=== PATIENT | female | born 1995 | race Two or more races ===

== ENCOUNTER 2019-09-08 20:30 | Inpatient (IN) | payer OTHER ==
[~2019-09-08] VITALS: Ht 162.6 cm; Wt 93.0 kg
[2019-09-08 20:50] VITALS: BP 107/65
[2019-09-08] MEDS ORDERED: LACTATED RINGERS 1,000 ML IV SCH (21:24)
[2019-09-08] MEDS ORDERED: LACTATED RINGERS 500 ML IV ONE (21:25)
[2019-09-08 21:56] LABS: APPEARANCE,URINE CLEAR (CLEAR); BILIRUBIN,URINE NEGATIVE (NEGATIVE); BLOOD, URINE NEGATIVE (NEGATIVE); COLOR,URINE YELLOW (YELLOW); LEUKOCYTE ESTERASE ,URINE NEGATIVE (NEGATIVE); NITRITE, URINE NEGATIVE (NEGATIVE); UGLUCOSE NEGATIVE (NEGATIVE)
[2019-09-08 21:57] LABS: BASOPHILS % (AUTO) 0.7 % (0.0-2.0); EOSINOPHILS # (AUTO) 0.1 K/uL (0-0.4); EOSINOPHILS % (AUTO) 0.9 % (0.0-4.0); HEMATOCRIT 34.2 % (36-48); LYMPHOCYTES # (AUTO) 1.9 K/uL (2.5-16.5); LYMPHOCYTES % (AUTO) 33.8 % (20.5-51.1); MEAN CORPUSCULAR HEMOGLOBIN 27 pg (27-31); MEAN CORPUSCULAR HGB CONC 32 g/dL (33-37); MONOCYTES # (AUTO) 0.4 K/uL (0.8-1.0); MONOCYTES % (AUTO) 7.2 % (1.7-9.3); NEUTROPHILS # (AUTO) 3.2 K/uL (1.8-7.7); NEUTROPHILS % (AUTO) 57.4 % (42.2-75.2); PLATELET COUNT (AUTO) 248 K/uL (140-450); RED BLOOD CELL COUNT(AUTO) 4.07 MIL/uL (4.20-5.40); RED CELL DISTRIBUTION WIDTH 17.7 % (11.6-13.7); WHITE BLOOD COUNT (AUTO) 5.6 K/uL (4.8-10.8)
[2019-09-08] MEDS ORDERED: AMPICILLIN 2,000 MG in NACL 0.9% MINI-BAG PLUS 100 ML IV SCH (22:00)
[2019-09-08] MEDS ORDERED: OXYTOCIN 20 UNITS/LR PREMIX 1,000 ML IV SCH (22:20)
[2019-09-08] MEDS ORDERED: OXYTOCIN 20 UNITS/LR PREMIX 1,000 ML IV ONE (22:39)
[2019-09-09] MEDS ORDERED: AMPICILLIN 1,000 MG in NACL 0.9% MINI-BAG PLUS 50 ML IV SCH (02:00)
[2019-09-09] MEDS ORDERED: fentaNYL 0.05 MG/ML VIAL ONE (07:54)
[2019-09-09] MEDS ORDERED: fentaNYL 0.05 MG/ML VIAL IVP SCH (07:55)
[2019-09-09] MEDS ORDERED: METHYLERGONOVINE 0.2 MG/ML AMP ONE (08:15)
[2019-09-09] MEDS ORDERED: ROPIVACAINE 0.2%/NS PREMIX 0 ML EPI ONE (08:16)
--- NOTE | 2019-09-09 08:46 | NUR ---
PATIENT HAS BEEN SCREENED AND CATEGORIZED LOW NUTRITION RISK. PATIENT WILL BE SEEN WITHIN 7 DAYS OF ADMISSION. 09/15/[address]
[2019-09-09] MEDS ORDERED: METHYLERGONOVINE 0.2 MG/ML AMP IM PRN (09:00)
[2019-09-09] MEDS ORDERED: BENZOCAINE/MENTHOL 20%-0.5% 60 GM CAN TP PRN (09:00)
[2019-09-09] MEDS ORDERED: oxyCODONE/APAP 5/325 MG 1 TAB TAB PO PRN (09:00)
[2019-09-09] MEDS ORDERED: TEMAZEPAM 15 MG CAP PO PRN (09:00)
[2019-09-09] MEDS ORDERED: SODIUM PHOSPHATE 118 ML ENEM RC PRN (09:00)
[2019-09-09] MEDS ORDERED: IBUPROFEN 800 MG TAB PO PRN (09:00)
[2019-09-09] MEDS ORDERED: OXYTOCIN 10 UNITS/ML VIAL IM PRN (09:00)
[2019-09-09] MEDS: HYDROcodone/APAP 5/325 MG 1 TAB TAB PO PRN ×2 (18:33→23:43)
[2019-09-09] MEDS ORDERED: DOCUSATE SOD/SENNA 50/8.6 MG 1 TAB PO SCH (21:00)
[2019-09-09] MEDS ORDERED: BISACODYL 5 MG TABEC PO SCH (21:00)
[2019-09-10 06:18] LABS: HEMATOCRIT 32.6 % (36-48); HEMOGLOBIN 10.4 g/dL (12.0-16.0)
[2019-09-10] MEDS ORDERED: IBUP-2213 PO (11:17)
[2019-09-10] MEDS ORDERED: FERR325E14 PO (11:18)
== END 2019-09-10 14:45 | disposition home or self-care (01) | DRG 560 ==
LOC: MFCC 20:30 → OBSVTOIN 21:24 → MFCC 09-09 10:50
PROVIDERS: ADMIT Obstetrics & Gynecology; ATTEND Obstetrics & Gynecology
PROC: 10E0XZZ Delivery of Products of Conception, External Approach (ICD-10-PCS; principal; 2019-09-09)
PROC: 10907ZC Drainage of Amniotic Fluid, Therapeutic from Products of Conception, Via Natural or Artificial Opening (ICD-10-PCS; 2019-09-09)
DX: O69.1XX0 Labor and delivery complicated by cord around neck, with compression, not applicable or unspecified (principal); R71.0 Precipitous drop in hematocrit; O77.0 Labor and delivery complicated by meconium in amniotic fluid; Z37.0 Single live birth; Z3A.38 38 weeks gestation of pregnancy
CPT/HCPCS: 36415; 59409; 81003; 85018; 85025; 86592; 86762; 86886; 86900; 86901; 87340; 87653-90; G0378; J2210; J2590; J2795; J3010; J7120